=== PATIENT | male | born 1935 | race Caucasian/White ===

== ENCOUNTER 2018-04-24 09:57 | Day surgery (SDC) | payer OTHER ==
[2018-04-24] MEDS ORDERED: FENTANYL 100MCG/2ML SOL ONE (09:58)
[2018-04-24] MEDS ORDERED: MIDAZOLAM 2 MG/2 ML SOL ONE (09:59)
[2018-04-24] MEDS ORDERED: ACETAZOLAMIDE 250 MG PO ONE (10:02)
[2018-04-24] MEDS: PHENYLEPHRINE HCL 10% OPHTHAL SOL ONE ×2 (10:15→10:28)
[2018-04-24] MEDS: PROPARACAINE HCL 0.5% OPHTHALMIC SOL ONE ×3 (10:15→11:05)
[2018-04-24] MEDS: KETOROLAC 0.5% OPTH 60 DROP SOL ONE ×2 (10:16→10:29)
[2018-04-24] MEDS: CYCLOPENTOLATE 1% SOL ONE ×2 (10:16→10:28)
[2018-04-24 10:19] VITALS: TEMP 97.4
[2018-04-24] MEDS ORDERED: LIDOCAINE HCL 1% MPF 30 SOL ONE (10:59)
[2018-04-24] MEDS ORDERED: BSS 500 ML 500 ML IR ONE (10:59)
[2018-04-24] MEDS ORDERED: POVIDONE IODINE 5% SOL ONE (10:59)
[2018-04-24] MEDS ORDERED: IMPRIMIS ONE (10:59)
[2018-04-24] MEDS ORDERED: ONDANSETRON HCL 4 MG/2 ML SOL ONE (11:13)
[2018-04-24 11:32] VITALS: RESP 18
[2018-04-24 11:46] VITALS: BP 135/82; PULSE 78; O2SAT 97
== END 2018-04-24 11:45 | disposition home or self-care (01) | DRG 125 ==
LOC: SURG 09:57
PROVIDERS: ATTEND Ophthalmology
DX: H25.89 Other age-related cataract (principal)
CPT/HCPCS: J2250; J2405; J3010; A9270-GY; J2001